=== PATIENT | male | born 1970 | race Caucasian/White ===

== ENCOUNTER 2021-02-26 06:35 | Emergency (ER) | payer MEDICARE, OTHER ==
[~2021-02-26] VITALS: Ht 177.8 cm; Wt 74.8 kg
--- NOTE | 2021-02-26 06:45 | NUR ---
PT AAOX4. BIBRA60 FROM HOME C/O S/I. TOOK 7 TAPS OF BUSPIRONE 10MG @530. PLACED IN BED 9 ON CAREERS ADVISER AND PULSE OX. NO ACUTE DISTRESS NOTED. AWAITING ER MD FOR EVAL AND ORDERS. [employer] AT BEDSIDE.
--- NOTE | 2021-02-26 06:48 | NUR ---
URINE SENT TO LAB
--- NOTE | 2021-02-26 06:54 | NUR ---
PER POISON CONTROL: -6 HOUR OBSERVATION -NORMAL TOX LABS -DONT EXPECT ANY EKG CHANGES
--- NOTE | 2021-02-26 07:20 | NUR ---
URINE SENT TO LAB
--- NOTE | 2021-02-26 07:26 | NUR ---
Edmund segura in [facility] - 02/26/21 at 0726 by JOSE TAYLOR PLACED PT ON HOLD
--- NOTE | 2021-02-26 07:27 | NUR ---
[employer] PLACED ON 5150 HOLD
--- NOTE | 2021-02-26 08:02 | NUR ---
PATIENT ASLEEP, NO DISTRESS NOTED AT THIS TIME.
--- NOTE | 2021-02-26 08:12 | NUR ---
URINE SENT TO LAB.
[2021-02-26 08:16] LABS: BILIRUBIN,URINE NEGATIVE (NEGATIVE); COLOR,URINE YELLOW (YELLOW); LEUKOCYTE ESTERASE ,URINE NEGATIVE (NEGATIVE); NITRITE, URINE NEGATIVE (NEGATIVE); PH,URINE 7.5 (5.0-8.0); PROTEIN,URINE NEGATIVE (NEGATIVE); UGLUCOSE NEGATIVE (NEGATIVE); UROBILINOGEN,URINE 0.2 EU/dL (0.2)
[2021-02-26 08:39] LABS: CALCIUM, SERUM 8.8 mg/dL (8.5-10.1); CARBON DIOXIDE 28 mmol/L (21-32); CHLORIDE 109 mmol/L (98-107); CREATININE 0.8 mg/dL (0.6-1.3); GLUCOSE 124 mg/dL (74-106); POTASSIUM 4.1 mmol/L (3.5-5.1); SODIUM SERUM 146 mmol/L (136-145); UREA NITROGEN, BLOOD 11 mg/dL (7-18)
[2021-02-26 08:42] LABS: ALANINE AMINOTRANSFERASE 51 U/L (12-78); ALBUMIN 3.8 g/dL (3.4-5.0); ALCOHOL, BLOOD < 3 mg/dL (0-0); ALKALINE PHOSPHATASE 77 U/L (46-116); ASPARTATE AMINOTRANSFERASE 28 U/L (15-37); BILIRUBIN,DIRECT 0.1 mg/dL (0.0-0.2); BILIRUBIN,TOTAL 0.4 mg/dL (0.2-1.0); TOTAL PROTEIN, SERUM 6.8 g/dL (6.4-8.2)
[2021-02-26 08:43] LABS: ACETAMINOPHEN 0 ug/ml (10-30)
[2021-02-26 09:32] LABS: BASOPHILS % (AUTO) 0.4 % (0.0-2.0); EOSINOPHILS % (AUTO) 0.4 % (0.0-6.0); HEMATOCRIT 43 % (39-51); HEMOGLOBIN 14.4 g/dL (13.5-17.5); LYMPHOCYTES # (AUTO) 1.4 K/uL (0.8-4.8); LYMPHOCYTES % (AUTO) 18.1 % (20.0-44.0); MEAN CORPUSCULAR HGB CONC 34 g/dl (31.0-36.0); MEAN CORPUSCULAR VOLUME 98 fL (80-96); MONOCYTES # (AUTO) 0.5 K/uL (0.1-1.30); MONOCYTES % (AUTO) 6.3 % (2.0-12.0); NEUTROPHILS # (AUTO) 5.7 K/uL (1.8-8.9); NEUTROPHILS % (AUTO) 74.8 % (43.0-81.0); PLATELET COUNT (AUTO) 280 K/uL (150-450); RED BLOOD CELL COUNT(AUTO) 4.37 MIL/uL (4.5-6.0); WHITE BLOOD COUNT (AUTO) 7.6 K/uL (4.3-11.0)
--- NOTE | 2021-02-26 11:50 | NUR ---
DONNY MELENDEZ ETA: 1400.
--- NOTE | 2021-02-26 13:41 | NUR ---
DONNY AT BEDSIDE FOR EVAL.
--- NOTE | 2021-02-26 15:49 | NUR ---
PATIENT A/OX4, BREATHING EVEN AND UNLABORED, DENIES SI/HI AT THIS TIME. AMBULATORY. BELONGINGS GIVEN BACK TO THE PATIENT. DRESSED UP. RESOURCES PROVIDED BY DAVIS JUNCTION. Patient discharged to home in stable condition. Written and verbal after care instructions given. Patient verbalizes understanding of instruction.
[2021-02-26 15:50] VITALS: BP 135/93
== END 2021-02-26 15:50 | disposition home or self-care (01) ==
LOC: ER 06:40
DX: T43.592A Poisoning by other antipsychotics and neuroleptics, intentional self-harm, initial encounter (principal); R42 Dizziness and giddiness; Y92.89 Other specified places as the place of occurrence of the external cause; F31.9 Bipolar disorder, unspecified; Z20.822 Contact with and (suspected) exposure to COVID-19; R94.31 Abnormal electrocardiogram [ECG] [EKG]; R45.851 Suicidal ideations
CPT/HCPCS: 36415; 80048-TC; 80076-TC; 85025-TC; C9803; G0480

== ENCOUNTER 2021-09-14 11:08 | Inpatient (IN) | payer MEDICARE, OTHER ==
[~2021-09-14] VITALS: Ht 177.8 cm; Wt 72.1 kg
--- NOTE | 2021-09-14 11:16 | NUR ---
called security for wanding
--- NOTE | 2021-09-14 11:26 | NUR ---
security at bedside for wanding
--- NOTE | 2021-09-14 11:32 | NUR ---
CALLED POISON CONTROL PATRICK: OBS FOR SIX TO EIGHT (6-8) HOURS LOOK FOR N/V DIZZINESS, ANXIETY, COMBATIVE BEHAVIOR. STAY AWAY FROM HALDOL AND BENADRYL. SOMTIMES ACCOMPANIED WITH TACHYCARDIA OR BRADYCARDIA. RIGIDITY OF UPPER EXTREMITIES, IF SO BENZOS CAN BE USED. USE CARDIAC MONITORING IF QTC PROLONGATION OF 120 USE SODIUM BICARBONATE. IF QTC >500 USE MAG SULF 1-2 GRAMS.
[2021-09-14 11:59] LABS: BASOPHILS % (AUTO) 0.6 % (0.0-2.0); EOSINOPHILS % (AUTO) 3.4 % (0.0-6.0); HEMATOCRIT 45 % (39-51); HEMOGLOBIN 15.2 g/dL (13.5-17.5); LYMPHOCYTES # (AUTO) 2.1 K/uL (0.8-4.8); LYMPHOCYTES % (AUTO) 33.9 % (20.0-44.0); MEAN CORPUSCULAR HGB CONC 34 g/dl (31.0-36.0); MEAN CORPUSCULAR VOLUME 97 fL (80-96); MONOCYTES # (AUTO) 0.4 K/uL (0.1-1.30); MONOCYTES % (AUTO) 6.8 % (2.0-12.0); NEUTROPHILS # (AUTO) 3.5 K/uL (1.8-8.9); NEUTROPHILS % (AUTO) 55.3 % (43.0-81.0); PLATELET COUNT (AUTO) 277 K/uL (150-450); RED BLOOD CELL COUNT(AUTO) 4.65 MIL/uL (4.5-6.0); WHITE BLOOD COUNT (AUTO) 6.3 K/uL (4.3-11.0)
[2021-09-14 12:07] LABS: ALANINE AMINOTRANSFERASE 51 U/L (12-78); ALBUMIN 3.9 g/dL (3.4-5.0); ALCOHOL, BLOOD < 3 mg/dL (0-0); ALKALINE PHOSPHATASE 77 U/L (46-116); ASPARTATE AMINOTRANSFERASE 24 U/L (15-37); BILIRUBIN,DIRECT 0.1 mg/dL (0.0-0.2); BILIRUBIN,TOTAL 0.3 mg/dL (0.2-1.0); CALCIUM, SERUM 8.5 mg/dL (8.5-10.1); CARBON DIOXIDE 26 mmol/L (21-32); CHLORIDE 105 mmol/L (98-107); CREATININE 0.9 mg/dL (0.6-1.3); GLUCOSE 107 mg/dL (74-106); POTASSIUM 3.9 mmol/L (3.5-5.1); SODIUM SERUM 141 mmol/L (136-145); TOTAL PROTEIN, SERUM 6.8 g/dL (6.4-8.2); UREA NITROGEN, BLOOD 12 mg/dL (7-18)
--- NOTE | 2021-09-14 12:08 | NUR ---
SS Note: Pt. Is a 51-year-old male who demonstrates adequate insight to the reason for hospitalization. Per pt., he came in for suicidal ideation. Per EMR, pt. took 30 to 40 tabs of buspirone. Pt. is placed on a hold by [employer]. Pt. was oriented x3, alert, and cooperative. During interview, pt. was capable of following directions and appeared unkempt. Pt.'s speech was at a low rate and pt.'s mood was elevated. Pt. reported no hx of mental health, substance abuse, and denies homicidal ideation. Pt. denies auditory hallucinations, visual hallucinations, paranoia, or delusions. Pt. reported having depression and anxiety. Pt. was in group therapy [every Sunday and ] on zoom but stopped going. Pt. has a psychiatrist [] that he sees once a month at [place]. SW explored pt.'s living situation. Per pt., he lives alone [[address] [place] [address]]. Pt. stated that he has been to [facility] and [facility] a few times this past year. Plan: Pt. is on a 5150 hold and will be admitted to the GPS unit.
[2021-09-14 12:19] LABS: ACETAMINOPHEN < 10 ug/ml (10-30)
[2021-09-14 12:52] LABS: BILIRUBIN,URINE NEGATIVE (NEGATIVE); COLOR,URINE YELLOW (YELLOW); LEUKOCYTE ESTERASE ,URINE NEGATIVE (NEGATIVE); NITRITE, URINE NEGATIVE (NEGATIVE); PROTEIN,URINE NEGATIVE (NEGATIVE); UGLUCOSE NEGATIVE (NEGATIVE); UROBILINOGEN,URINE 0.2 EU/dL (0.2)
--- NOTE | 2021-09-14 13:05 | NUR ---
URINE COLLECTED AND SENT TO THE LAB
--- NOTE | 2021-09-14 13:52 | NUR ---
MIREYA MERRILL [phone] MOTHER.
--- NOTE | 2021-09-14 19:32 | NUR ---
REPORT GIVEN TO NURSE SHI FOR [place]
--- NOTE | 2021-09-14 22:42 | NUR ---
PT AMBULATED TO BATHROOM. STEADY GAIT NOTED. ACCOMPAINED BY SITTER
--- NOTE | 2021-09-14 22:52 | NUR ---
AUDI Matthews paged for psych eval. awaiting call back
--- NOTE | 2021-09-14 23:23 | NUR ---
[facility]ton is coming for psych eval
--- NOTE | 2021-09-14 23:39 | NUR ---
PT IS RESTING COMFORTABLY, ASLEEP BUT EASILY AROUSABLE. WILL CONT TO MONITOR
--- NOTE | 2021-09-15 00:40 | NUR ---
AUDI FLEMING AT BEDSIDE FOR EVAL
--- NOTE | 2021-09-15 01:18 | NUR ---
Patient will remain on 5150 and transferred to first available hospital with a bed. Please contact mom to inform her of patient's transfer. Matilda Salmon [phone] or [phone]
--- NOTE | 2021-09-15 07:33 | NUR ---
PT GOING TO ROOM 220A
--- NOTE | 2021-09-15 07:53 | NUR ---
CALL FROM RICKEY,ACCEPTED BY DR SNEED,GOING TO [facility],[address] [facility] [place] [address],REPORT GIVEN TO RICKEY
[2021-09-15] MEDS ORDERED: BUSP10TA3 PO (08:04)
[2021-09-15] MEDS ORDERED: OLAN10TA3 PO (08:04)
--- NOTE | 2021-09-15 08:30 | NUR ---
THE PATIENT IS TAKEN TO ROOM 220A IN STABLE CONDITION AND PER POLICY.
--- NOTE | 2021-09-15 08:41 | NUR ---
CHEYENNE BROWN WAS INFORMED TO CANCEL PATIENT BED, PT WENT TO GPS. SPOKE TO RICKEY
[2021-09-15 09:00] VITALS: BP 130/73
[2021-09-15] MEDS ORDERED: BLOOD SUGAR DIAGNOSTIC 1 EACH STRIP IN ONE (09:00)
[2021-09-15] MEDS ORDERED: ACETAMINOPHEN 325 MG TABLET PO PRN (09:00)
[2021-09-15] MEDS ORDERED: MAGNESIUM HYDROXIDE 30 ML UDC PO PRN (09:00)
--- NOTE | 2021-09-15 10:10 | NUR ---
SW Admit Source: Pt placed on a 5150 hold for danger to himself. Patient overdosed at home took about 30-40 pills. Patient currently resides at [address] [place] [address]; ([phone]). Patient would want to return back home upon dc.
--- NOTE | 2021-09-15 10:10 | NUR ---
ELENI Initial Discharge Plan: Patient currently resides at [address] [place], [place] [id number]; ([phone]). Patient would want to return back home upon dc. ELENI will work with the family and MD to help coordinate appropriate discharge.
--- NOTE | 2021-09-15 10:15 | NUR ---
Social Work Note/Substance Abuse Intervention: Patient was provided with a brief substance abuse intervention and referred to [facility] ([phone]), [facility] ([phone]), and [facility] ([phone]) for smoking.
[2021-09-15] MEDS: SERTRALINE HCL 50 MG TABLET PO SCH (10:34)
[2021-09-15] MEDS: OLANZAPINE 10 MG TABLET PO SCH (10:34)
--- NOTE | 2021-09-15 10:34 | NUR ---
ELENI Family Contact: ELENI contacted patient's mother Matilda ([phone]) and left a detailed voicemail of dc plan and treatment plan.
--- NOTE | 2021-09-15 11:23 | NUR ---
Admitted a 51 years old male fro ER brought in by ER staff on 515 for DTS. Pt. arrived in the unit via a wheelchair and brought in by ER staffs. Pt. came with no belongings, alert/oriented x3, ambulatory and continent. Upon face to face assessment pt. denies suicidal and homicidal. Per pt. he had 3 suicidal attempts in last year by OD and recently. The reason that he overdosed on 30 to 40 pills because he was helpless and hopeless, depressed, lonely, no friends, families did not talk to him, no job an his car is broke. Pt. is cooperative on the admission process and with depressed mood, pt. signed the admission papers, contraband done, v/s taken and mother made aware. Houston Hobbs SULFATE DRIER MACHINE OPERATOR made aware of the admission with order and seen pt. Renetta Gar NP made aware of the admission.
--- NOTE | 2021-09-15 13:00 | NUR ---
ELENI Family Contact: SW contacted patient's mother Matilda ([phone]) and discussed pt's treatment/discharge plan. She did state that the pt manipulates. She reported that pt receives Abilify long acting injection every month, Dr. Conrad is aware (does not have good side effects).
[2021-09-15] MEDS: LORAZEPAM 0.5 MG TABLET PO PRN ×2 (15:30→21:33)
[2021-09-15 16:00] VITALS: BP_SYST 131; BP_SYST 134; BP_DIAS 67; BP_DIAS 84
[2021-09-15 19:31] LABS: BILIRUBIN,URINE NEGATIVE (NEGATIVE); COLOR,URINE YELLOW (YELLOW); LEUKOCYTE ESTERASE ,URINE NEGATIVE (NEGATIVE); NITRITE, URINE NEGATIVE (NEGATIVE); PH,URINE 5.5 (5.0-8.0); PROTEIN,URINE NEGATIVE (NEGATIVE); UGLUCOSE NEGATIVE (NEGATIVE); UROBILINOGEN,URINE 0.2 EU/dL (0.2)
[2021-09-15 20:00] VITALS: BP 127/72
--- NOTE | 2021-09-15 21:36 | NUR ---
GPS RN NOTE: ANXIETY PATIENT C/O FEELING ANXIOUS AND RESTLESS AND REQUESTED ATIVAN. PRN ATIVAN 0.5 MG PO ADMINISTERED.
[2021-09-16] MEDS: TEMAZEPAM 7.5 MG CAPSULE PO PRN (01:32)
--- NOTE | 2021-09-16 01:37 | NUR ---
GPS RN NOTE: INSOMNIA PATIENT VERBALIZED INABILITY TO SLEEP AND REQUESTED SLEEPING MEDICINE. PRN RESTORIL 7.5 MG PO ADMINISTERED. WILL CONTINUE TO MONITOR.
[2021-09-16 06:42] LABS: CHOLESTEROL 142 mg/dL (<200); HDL CHOLESTEROL 40 mg/dL (40-60); LDL 81 mg/dL (0-99); TRIGLYCERIDES 132 mg/dL (30-150)
[2021-09-16 07:44] LABS: ALBUMIN 3.4 g/dL (3.4-5.0); BILIRUBIN,TOTAL 0.5 mg/dL (0.2-1.0); CALCIUM, SERUM 8.3 mg/dL (8.5-10.1); CREATININE 0.8 mg/dL (0.6-1.3); POTASSIUM 4.1 mmol/L (3.5-5.1); TOTAL PROTEIN, SERUM 6.1 g/dL (6.4-8.2)
[2021-09-16 08:00] VITALS: BP 125/70
[2021-09-16] MEDS: OLANZAPINE 10 MG TABLET PO SCH (08:23)
[2021-09-16] MEDS: SERTRALINE HCL 50 MG TABLET PO SCH (08:23)
[2021-09-16] MEDS ORDERED: NICOTINE PATCH (14MG) 14 MG PATCH.TD24 TD SCH (09:00)
--- NOTE | 2021-09-16 09:54 | NUR ---
Renetta Gar NP ordered Nicotine patch 7 mg instead of 14 mg.
[2021-09-16] MEDS: NICOTINE PATCH (7MG) 7 MG PATCH.TD24 TD SCH (11:23)
[2021-09-16 16:00] VITALS: BP 119/65
[2021-09-16] MEDS: LORAZEPAM 0.5 MG TABLET PO PRN (17:51)
[2021-09-16 20:00] VITALS: BP 132/75
[2021-09-16 20:19] VITALS: BP 132/75
--- NOTE | 2021-09-16 20:50 | NUR ---
RN NOTES: UPON ENDORSEMENT HE WAS JUST LYING ON HIS BED, EYES CLOSE, WHEN RN ENTERED HIS ROOM AND CALL HIS NAME HE ANSWERED BACK, HE WAS ASKING WHEN HE WILL BE DISCHARGE?EXPLAINED TO HIM NO ORDERS YET, FALL AND SAFETY PRECAUTION OBSERVED, BED LOW AND LOCKED. -AROUND 2029-HE IS SNORING, FALLING ASLEEP.
[2021-09-17] MEDS: TEMAZEPAM 7.5 MG CAPSULE PO PRN ×2 (00:37→23:05)
--- NOTE | 2021-09-17 00:37 | NUR ---
RN NOTES: AWAKE HE WENT TO THE BATHROOM THEN ASKED FOR SOME JUICE, HE REQUEST IF HE CAN HAVE HIS SLEEPING PILL, GIVEN PER PATIENT REQUEST. -NO HALLUCINATION OR ANY SIGN OF AGGRESSIVE BEHAVIOR. -WILL CONTINUE TO MONITOR.FALL AND SAFETY PRECAUTION OBSERVED. Addendum: 09/17/21 at 0053 by VERONIKA NICHOLSON RN ADDITIONAL NOTES: -HE WALKS AROUND AND DRINK SOME JUICE THEN GO BACK TO HIS ROOM.ORIENTED THAT HE WILL HAVE A NEW ROOMMATE, HE AGREED.
--- NOTE | 2021-09-17 06:45 | NUR ---
RN NOTES: ASLEEP FOR ALMOST 7 HOURS, CALLS AND NEEDS ATTENDED, KEPT MONITORED, ENDORSED FOR CONTINUITY OF CARE. Addendum: 09/17/21 at 0651 by VERONIKA NICHOLSON RN CORRECTION: SLEPT FOR A TOTAL OF 8 HOURS.
[2021-09-17 08:00] VITALS: BP 118/72
[2021-09-17] MEDS: SERTRALINE HCL 50 MG TABLET PO SCH (08:04)
[2021-09-17] MEDS: NICOTINE PATCH (7MG) 7 MG PATCH.TD24 TD SCH (08:04)
[2021-09-17] MEDS: OLANZAPINE 10 MG TABLET PO SCH (08:04)
[2021-09-17] MEDS ORDERED: NICOTINE PATCH (7MG) 7 MG PATCH.TD24 TD SCH (09:00)
--- NOTE | 2021-09-17 09:00 | NUR ---
GPS/RN RECEIVED PATIENT RESTING IN THE ROOM NO S/S DISTRESS NOTED AT THIS TIME DENIES SI/HI AVH. DENIED PAIN AND DISCOMFORTS. DAILY MEDS COMPLIANT. ALL NEEDS ATTENDED AND ANTICIPATED. WILL CONTINUE MONITORING FOR SAFETY AND BEHAVIOR Q 15 MIN
[2021-09-17] MEDS: LORAZEPAM 0.5 MG TABLET PO PRN (13:35)
[2021-09-17 16:00] VITALS: BP 150/68
[2021-09-17] MEDS: OLANZAPINE 5 MG TABLET PO SCH (16:29)
--- NOTE | 2021-09-17 19:30 | NUR ---
GPS RN NOTE, RECEIVED PATIENT AWAKE AND IN BED, NO S/S OR COMPLAINTS OF PAIN AT THIS TIME. PATIENT IS DISPLAYING NO S/S OF APPARENT DISTRESS AT THIS TIME. PATIENT BREATHING IS UNLABORED WITH EQUAL RISE AND FALL OF THE CHEST. PATIENT IS ALERT AND ORIENTED X 3 ON ROOM AIR WITH A SPO2 97%. PATIENT IS COMPLIANT WITH MEDICATIONS, DEPRESSED, POLITE, ISOLATIVE, MAKES NEEDS KNOWN, AND COOPERATIVE. PATIENT DENIES SUICIDAL AND HOMICIDAL IDEATIONS AT THIS TIME. PATIENT ASSISTED WITH TURNING AND REPOSITIONING Q2HR AND PRN FOR COMFORT AND CIRCULATION. PATIENT HAS NO NEEDS AT THIS TIME. PATIENT EDUCATED ON THE USE OF THE CALL WEISS. PATIENT BED SIDE RAILS UP X 2 FOR SAFETY. PATIENT BED IS LOCKED, LOW, WITH BED ALARM ON. WILL CONTINUE TO MONITOR THIS PATIENT Q15 MINUTES WITH THE HELP OF STAFF TO MAINTAIN SAFETY.
[2021-09-17 20:25] VITALS: BP 105/96
--- NOTE | 2021-09-17 23:08 | NUR ---
GPS RN NOTE, PATIENT HAS A COMPLAINT OF NOT BEING ABLE TO SLEEP AND IS REQUESTING RESTORIL AT THIS TIME. PATIENT VITAL SIGNS ARE STABLE. GAVE RESTORIL 7.5 MG PO HS PRN ORDERED. WILL REASSESS FOR INSOMNIA AND I WILL CONTINUE TO MONITOR THIS PATIENT WITH THE HELP OF STAFF.
[2021-09-18 08:00] VITALS: BP 124/90
[2021-09-18] MEDS: SERTRALINE HCL 50 MG TABLET PO SCH (08:18)
[2021-09-18] MEDS: NICOTINE PATCH (7MG) 7 MG PATCH.TD24 TD SCH (08:19)
[2021-09-18] MEDS: OLANZAPINE 5 MG TABLET PO SCH ×2 (08:19→17:33)
--- NOTE | 2021-09-18 09:00 | NUR ---
GPS/RN RECEIVED PATIENT RESTING IN THE ROOM NO S/S DISTRESS NOTED AT THIS TIME DENIES SI/HI AVH. DENIED PAIN AND DISCOMFORTS. DAILY MEDS COMPLIANT.ALL NEEDS ATTENDED AND ANTICIPATED. WILL CONTINUE MONITORING FOR SAFETY AND BEHAVIOR Q 15 MIN
[2021-09-18] MEDS: LORAZEPAM 0.5 MG TABLET PO PRN (12:09)
[2021-09-18 16:00] VITALS: BP 110/68
[2021-09-18 20:19] VITALS: BP 128/82
[2021-09-18] MEDS: TEMAZEPAM 7.5 MG CAPSULE PO PRN (21:25)
--- NOTE | 2021-09-18 22:59 | NUR ---
Patient is alert,oriented x 2-3,ambulatory,remains unmotivated,isolative,withdrawn,no verbalization thought and feeling.Patient appears to be depressed and preoccupied.No s/s of acute distress noted.Will continue to monitor q15 min rounds for safe .
[2021-09-19] MEDS: LORAZEPAM 0.5 MG TABLET PO PRN ×2 (00:21→14:36)
[2021-09-19 08:00] VITALS: BP 109/77
[2021-09-19] MEDS: NICOTINE PATCH (7MG) 7 MG PATCH.TD24 TD SCH (09:00)
[2021-09-19] MEDS: OLANZAPINE 5 MG TABLET PO SCH ×2 (09:00→16:23)
[2021-09-19] MEDS: SERTRALINE HCL 50 MG TABLET PO SCH (09:01)
[2021-09-19 16:00] VITALS: BP 118/72
--- NOTE | 2021-09-19 16:28 | NUR ---
Individual Counseling: SW met with pt. at bedside. the pt. is alert & oriented and makes avoidant eye contact.The pt. is withdrawn with depressed mood & flat affect. Pt. denies current SI. SW explored pt.'s things patient would like to change in his life. Pt. discussed wanting to improve his relationship with his father and sisters after he is discharged. SW encouraged pt. to reach out to family and attempt socializing with family. SW highlighted important factors shared by patient and linked these to his presenting problem. SW encouraged pt. to go into day room and socialize or at last walk around. Pt. noted getting out of bed and walking.
[2021-09-19 20:22] VITALS: BP 126/71
[2021-09-19] MEDS: TEMAZEPAM 7.5 MG CAPSULE PO PRN (22:14)
[2021-09-20] MEDS: LORAZEPAM 0.5 MG TABLET PO PRN ×2 (02:58→12:43)
--- NOTE | 2021-09-20 03:00 | NUR ---
GPS/RN PATIENT IS AWAKE, ASKING FOR SLEEPING PILL, ANXIOUS, ATIVAN ORDERED WAS GIVEN. WILL CONTINUE TO MONITOR.
--- NOTE | 2021-09-20 04:46 | NUR ---
GPS/RN PATIENT WAS CHECKED AT 04:00 AND WAS SLEEPING, BREATHING EVEN AND UNLABORED. WILL CONTINUE TO MONITOR.
[2021-09-20 08:00] VITALS: BP 104/61
[2021-09-20] MEDS: SERTRALINE HCL 50 MG TABLET PO SCH (09:28)
[2021-09-20] MEDS: NICOTINE PATCH (7MG) 7 MG PATCH.TD24 TD SCH (09:28)
[2021-09-20] MEDS: OLANZAPINE 5 MG TABLET PO SCH ×2 (09:28→17:00)
[2021-09-20] MEDS: BENZTROPINE MESYLATE (1 MG) 1 MG TABLET PO SCH ×2 (09:35→17:00)
--- NOTE | 2021-09-20 12:43 | NUR ---
Patient c/o anxiety medicated with Ativan 0.5mg x1 will continue to monitor .
[2021-09-20 16:00] VITALS: BP 116/68
[2021-09-20 20:00] VITALS: BP 111/65
[2021-09-20] MEDS: TEMAZEPAM 7.5 MG CAPSULE PO PRN (20:43)
[2021-09-21] MEDS: LORAZEPAM 0.5 MG TABLET PO PRN ×3 (01:16→20:58)
--- NOTE | 2021-09-21 06:57 | NUR ---
Patient remains isolative,withdrawn,blunted affect, unmotivated,guarded at times.No s/s of acute distress noted.Will continue to monitor q15 min rounds for safety.
[2021-09-21 08:00] VITALS: BP 101/64
[2021-09-21] MEDS: BENZTROPINE MESYLATE (1 MG) 1 MG TABLET PO SCH ×2 (08:17→16:30)
[2021-09-21] MEDS: NICOTINE PATCH (7MG) 7 MG PATCH.TD24 TD SCH (08:17)
[2021-09-21] MEDS: OLANZAPINE 5 MG TABLET PO SCH ×2 (08:18→16:29)
[2021-09-21] MEDS: SERTRALINE HCL 50 MG TABLET PO SCH (08:18)
--- NOTE | 2021-09-21 09:39 | NUR ---
Court Notification: SW contacted patient's mother Matilda ([phone]) to notify of pt's 0980 hearing today.
--- NOTE | 2021-09-21 09:55 | NUR ---
ELENI Coordination of Care: Patient will follow up with (City Collector) Dr. Luis Bajwa located at [id number] [place] [address] [address], [place] [address]; ([phone]) on September 30 at 9:30AM.
--- NOTE | 2021-09-21 11:32 | NUR ---
RN-CO: Received patient in bed awake,appears to be depressed,blunted affect,no verbalization of thoughts and feelings.Will continue to monitor q15 min rounds for safety.PATIENT IS COOPERATIVE TO CARE. HE IS UNKEMPT AND DISHEVELED. UNMOTIVATED TO SELFCARE.
--- NOTE | 2021-09-21 11:54 | NUR ---
Court Hearing: Patient's court hearing for 2760 was today and it was upheld for danger to himself and GD.
--- NOTE | 2021-09-21 14:57 | NUR ---
RN-CO: PT REQUESTED FOR ATIVAN FOR C/O ANXIETY.
[2021-09-21 16:00] VITALS: BP 111/63
[2021-09-21 20:00] VITALS: BP 109/67
[2021-09-21] MEDS: TEMAZEPAM 7.5 MG CAPSULE PO PRN (20:58)
[2021-09-22 08:00] VITALS: BP 117/69
[2021-09-22] MEDS: OLANZAPINE 5 MG TABLET PO SCH ×2 (08:18→17:11)
[2021-09-22] MEDS: BENZTROPINE MESYLATE (1 MG) 1 MG TABLET PO SCH ×2 (08:19→17:11)
[2021-09-22] MEDS: SERTRALINE HCL 50 MG TABLET PO SCH (08:19)
[2021-09-22] MEDS: NICOTINE PATCH (7MG) 7 MG PATCH.TD24 TD SCH (08:21)
--- NOTE | 2021-09-22 09:24 | NUR ---
RN-CO: PT IS DEPRESSED, UNMOTIVATED TO SELFCARE. UNKEMPT AND DISHEVELED. HE HAS BLUNTED AFFECT. HE SLLEPS MOST OF THE TIME BUT WHEN HE WAKE UP HE WILL REQUEST FOR ATIVAN DUE TO ANXIETY. PT IS REDIRECTABLE AND HAS FAIR TO GOOD IMPULSE CONTROL. WE WILL CONTINUE TO MONITOR.
[2021-09-22] MEDS: LORAZEPAM 0.5 MG TABLET PO PRN ×2 (15:01→21:09)
--- NOTE | 2021-09-22 15:01 | NUR ---
RN-CO: Patient requested for Ativan 0.5 mg po for c/o anxiety.
[2021-09-22 16:00] VITALS: BP 116/76
[2021-09-22 20:00] VITALS: BP 104/63
[2021-09-22] MEDS: MAG HYDROX/AL HYDROX/SIMETH 30 ML UDC PO PRN (21:08)
[2021-09-23] MEDS: TEMAZEPAM 7.5 MG CAPSULE PO PRN ×2 (00:06→22:20)
[2021-09-23] MEDS: MAG HYDROX/AL HYDROX/SIMETH 30 ML UDC PO PRN ×3 (03:33→21:08)
[2021-09-23 08:00] VITALS: BP 111/75
--- NOTE | 2021-09-23 08:17 | NUR ---
SUNDAY EARLY DISCHARGE ENTRY 09/24/2021: Patient will discharge back home located at [address], [place] [address]; ([phone]). Patients mother Matilda ([phone]) will orange picker pt at 11AM. Patients mother Matilda ([phone]) is aware and agreeable of dc. Patient is alert and oriented x4. Patient denies suicidal or homicidal ideation. Patient denies visual/auditory hallucinations. Patient will follow up with (Community Health Nurse Staff) Dr. Luis Bajwa located at [address] [facility] [address], [place] [address]; ([phone]) on September 30 at 9:30AM. Patient will follow up with (Psychiatrist) Dr. Alex Prather located at [address] [facility] [address], [place] [address]; ([phone]) on September 26 at 3PM. Patient presents with euthymic mood and congruent affect.
[2021-09-23] MEDS: NICOTINE PATCH (7MG) 7 MG PATCH.TD24 TD SCH (08:20)
[2021-09-23] MEDS: SERTRALINE HCL 50 MG TABLET PO SCH (08:20)
[2021-09-23] MEDS: OLANZAPINE 5 MG TABLET PO SCH ×2 (08:20→16:22)
[2021-09-23] MEDS: BENZTROPINE MESYLATE (1 MG) 1 MG TABLET PO SCH ×2 (08:20→16:22)
[2021-09-23] MEDS: LORAZEPAM 0.5 MG TABLET PO PRN ×2 (11:53→23:35)
[2021-09-23 16:00] VITALS: BP 139/73
--- NOTE | 2021-09-23 19:48 | NUR ---
RN NOTE: PATIENT RESTING IN THE ROOM NO S/S DISTRESS NOTED AT THIS TIME DENIES SI/HI AVH AT THIS TIME. DENIED PAIN AND DISCOMFORTS. DAILY MEDS COMPLIANT.ALL NEEDS ATTENDED AND ANTICIPATED. WILL CONTINUE Q 15 MONITORING FOR SAFETY AND BEHAVIOR .
[2021-09-23 20:00] VITALS: BP 105/63
--- NOTE | 2021-09-23 21:10 | NUR ---
RN NOTES: PT. C/O INDIGESTIONS PRN MAALOX 30 ML GIVEN PER PT. REQUEST, WILL CONTINUE TO MONITOR.
--- NOTE | 2021-09-23 22:25 | NUR ---
RN NOTES: INSOMNIA PT. C/O UNABLE TO SLEEP PRN RESTORIL 7.5 MG PO GIVEN PER PT. REQUEST , WILL CONTINUE TO MONITOR.
--- NOTE | 2021-09-23 23:36 | NUR ---
RN NOTES: ANXIETY PATIENT C/O FEELING ANXIOUS AND RESTLESS AND REQUESTED ATIVAN. PRN ATIVAN 0.5 MG PO ADMINISTERED.,WILL CONTINUE TO MONITOR.
--- NOTE | 2021-09-24 06:45 | NUR ---
RN NOTES: PATIENT IS RESTING COMFORTABLY IN BED. NO C/O PAIN THIS SHIFT. NO BEHAVIORAL ISSUES THIS SHIFT. NO S/S OF DISTRESS. RESPIRATION EVEN AND UNLABORED WITH EQUAL RISE AND FALL OF THE CHEST, ON ROOM AIR. ALL PATIENT CARE NEEDS HAVE BEEN MET ANTICIPATED. WILL CONTINUE TO MONITOR AND ENDORSE TO AM SHIFT.
[2021-09-24 08:00] VITALS: BP 115/58
--- NOTE | 2021-09-24 08:10 | NUR ---
Houston Hobbs SUPERCHARGER MECHANIC of Dr. Hatch gave an order to D/C hold and D/C home and to follow up with psych and medical doctors. Spoke to the mother Matilda at [phone] and said she will come and pick her son at 11:00 AM today.
[2021-09-24] MEDS: SERTRALINE HCL 50 MG TABLET PO SCH (08:40)
[2021-09-24] MEDS: NICOTINE PATCH (7MG) 7 MG PATCH.TD24 TD SCH (08:40)
[2021-09-24] MEDS: BENZTROPINE MESYLATE (1 MG) 1 MG TABLET PO SCH (08:41)
[2021-09-24] MEDS: OLANZAPINE 5 MG TABLET PO SCH (08:41)
--- NOTE | 2021-09-24 11:30 | NUR ---
GPS/RN PT D/C HOME WITH HIS MOTHER MIREYA MERRILL. PRESCRIPTIONS, EXIT CARE INSTRUCTIONS AND MD APPOINTMENTS INFORMATION PROVIDED. NO SI OR HI AT THE TIME OF D/C. VSS. NO PROPERTY TO RETURN. MOTHER BROUGHT THE CLOTHES.
== END 2021-09-24 11:30 | disposition home or self-care (01) | DRG 881 ==
LOC: ER 11:18 → GPS 09-15 07:47
PROVIDERS: ADMIT Nurse Practitioner Psychiatric/Mental Health; ATTEND Internal Medicine
DX: F32.9 Major depressive disorder, single episode, unspecified (principal); R45.851 Suicidal ideations; F10.94 Alcohol use, unspecified with alcohol-induced mood disorder; F25.9 Schizoaffective disorder, unspecified; F32.A Depression, unspecified; T43.592D Poisoning by other antipsychotics and neuroleptics, intentional self-harm, subsequent encounter; F17.200 Nicotine dependence, unspecified, uncomplicated; Z79.899 Other long term (current) drug therapy; Y90.0 Blood alcohol level of less than 20 mg/100 ml; Z91.51 Personal history of suicidal behavior; Z91.19 Patient's noncompliance with other medical treatment and regimen; F41.9 Anxiety disorder, unspecified
CPT/HCPCS: 36415; 80048-TC; 80053-TC; 80061-TC; 80076-TC; 85025-TC; 87081-TC; C9803; G0480